=== PATIENT | female | born 2000 | race Caucasian/White ===

== ENCOUNTER 2021-04-17 12:42 | Outpatient (CLI) | payer BC, SELFPAY ==
--- NOTE | ~2021-04-17 | US_ITS ---
EXAMINATION: US soft tissue head and neck DATE: 04/17/2021 13:09 INDICATION: Right neck localized swelling. TECHNIQUE: Multiple grayscale and Doppler ultrasound images of the neck were obtained. COMPARISON: None FINDINGS: There is no abnormal mass or lymphadenopathy in the patient's area of concern in right neck . IMPRESSION: 1. No abnormal mass or lymphadenopathy in the patient's area of concern in right neck. Reviewed, dictated and finalized at location A. IMPRESSION: 1. No abnormal mass or lymphadenopathy in the patient's area of concern in righ t neck.
== END 2021-04-17 12:43 | disposition home or self-care (01) ==
PROVIDERS: PCP Physician Assistant; Visit Provider Physician Assistant
DX: R22.1 Localized swelling, mass and lump, neck (principal)
CPT/HCPCS: 76536

== ENCOUNTER 2022-06-13 13:00 | Emergency (ER) | payer OTHER, BC, SELFPAY ==
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
[2022-06-13 13:17] VITALS: BP 119/99; PULSE 92; RESP 20; TEMP 36.8; O2SAT 100
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
== END 2022-06-13 14:04 | disposition home or self-care (01) ==
PROVIDERS: Emergency Provider Nurse Practitioner Family; PCP Physician Assistant
DX: S22.21XA Fracture of manubrium, initial encounter for closed fracture (principal); V49.40XA Driver injured in collision with unspecified motor vehicles in traffic accident, initial encounter; J45.909 Unspecified asthma, uncomplicated; F41.9 Anxiety disorder, unspecified; F32.A Depression, unspecified
CPT/HCPCS: 71046; 71120; 99213; G0463

== ENCOUNTER 2022-07-01 13:16 | Outpatient (CLI) | payer OTHER, SELFPAY ==
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
== END 2022-07-01 13:17 | disposition home or self-care (01) ==
LOC: ANHIMG 13:25
PROVIDERS: PCP Physician Assistant; Visit Provider Physician Assistant
DX: S22.20XA Unspecified fracture of sternum, initial encounter for closed fracture (principal); T14.90XA Injury, unspecified, initial encounter
CPT/HCPCS: 71120

== ENCOUNTER 2025-03-01 10:42 | Outpatient (CLI) | payer OTHER, SELFPAY ==
--- NOTE | ~2025-03-01 | XR_ITS ---
XR lumbar spine 2-3V 03/01/2025 11:08 Indication: Sciatica the right side Procedure: 3 views lumbar spine Comparison: No prior studies for comparison. Findings: There is mild levocurvature of the lumbar spine. There is a punctate right renal stone. Marialuisa tebral body heights are maintained. No evidence for spondylolisthesis. There is facet hypertrophy at L4-5 and L5-S1. No significant disc narrowing. Impression: 1: Mild lumbar spondylosis with levoscoliosis. 2: Right nephrolithiasis. Reviewed, dictated and finalized at location A. Impression: 1: Mild lumbar spondylosis with levoscoliosis. 2: Right nephrolithiasis.
== END 2025-03-01 10:43 | disposition home or self-care (01) ==
PROVIDERS: PCP Physician Assistant; Visit Provider Physician Assistant
DX: M47.816 Spondylosis without myelopathy or radiculopathy, lumbar region (principal); M41.86 Other forms of scoliosis, lumbar region; N20.0 Calculus of kidney; M54.31 Sciatica, right side
CPT/HCPCS: 72100

== ENCOUNTER 2025-05-22 00:30 | Day surgery (SDC) | payer OTHER, SELFPAY ==
--- OUTSIDE RECORDS SUMMARY | 2006-03-05 03:15 | XMS_ITS | Continuity of Care Document ---
Author Organization [facility] Address [address] [place] [address] [address] [place] [address] Phone Care Team Providers Care Water Server Name Role Phone Darlene Hernández Unavailable Unavailable Advance Directives Directive Yes / No Effective Date File Name No Information Encounters Encounter Description Practice Location Reason(s) For Visit Diagnoses Date Provider Providers Copied on Encounter [facility], [address] [place] [address] [address], [place], [place], [id number], [place] tel:[phone] [facility] [place] No Information 7[address] Betty Colon. [address] [place] , [address], [place], [address], [place]. tel:[phone] Family History Family Member Type Diagnosis Age At Onset No Information Payers Payer name Insurance type Covered green party ID Authoriza tion(s) No Information Social History Type Description Quantity Date Captured Comments Sex Female Smoking Status No Information Chief Complaint And Reason For Visit No Information Reason For Referral Reason For Referral No Information History Of Present Illness Encounter Date Complaint History Of Prese nt Illness No Information Functional Status Date Functional Assessmen t No Information Instructions Date Instruction Additional Infor mation No Information Assessments Type Assessment Date No Information Patient Care Teams Name Effective Dates (start - stop) Status Members No Information
--- OUTSIDE RECORDS SUMMARY | 2024-01-23 16:30 | XMS_ITS ---
Author Organization [employer] [place] ([address]) Address [address] [place] [address] Care Team Providers Care Contact Centre Supervisor Name Role Phone Christie High Primary Care Provider Unavailab le Madai Copeland Unavailable [phone] Carlos Manuel Jeffers Unavailable Unavailable [employer], Provider Unavailable Unavailab le Allergies Allergen (clinical drug ingredient) Drug/Non Drug Allergy documented on EMR Reaction Allergy Type Onset Date Status OMNICEF (uncoded) Hives Allergy Ac tive REASON FOR VISIT [facility] To [facility] Conversion Encounter Medications Medication SIG (Take, Route, Frequency, Duration) Notes Start Date End Date Status ZyrTEC Allergy 10 MG 1 tab(s) orally once a day Active Breo Ellipta 100 MCG-25 MCG/INH 1 PUFF(S) INHALED ONCE A DAY *Please review and pick correct strength-formulat ion from [employer] options. If intended option is not shown, discontinue and re-order from Quick Search* Active Breo Ellipta 100 MCG-25 MCG/INH 1 PUFF(S) INHALED ONCE A DAY; Duration: 30 DAY(S) *Please review and pick correct strength-formulat ion from [employer] options. If intended option is not shown, discontinue and re-order from Quick Search* Active PROAIR HFA CFC FREE 90 MCG/INH 2 PUFF(S) INHALED Q4-6 HOURS, PRN AND PER THE ASTHMA ACTION PLAN; Duration: 30 DAY(S) *Please review for potential replacement for e-prescription and drug interaction check* Active AEROCHAMBER PLUS N/A USE WITH INHALER BY MOUTH WITH ALBUTEROL PER ASTHMA ACTION PLAN *Please review for potential replacement for e-prescription and drug interaction check* Active NASAL WASHES N/A DIRECTED INTRANASALLY NEEDED; Duration: 30 *Please review for potential replacement for e-prescription and drug interaction check* Not-Taking Encounters Encounter Location Date Provider Diagnosis [address] [address] 01/23/2024 Provider Cheng Moderate persistent asthma, uncomplicated J45.40 and Allergic rhinitis due to pollen J30.1 Assessments Encounter Date Diagnosis (ICD Code) Assessment Notes Treatment Notes Treatment Clinical Notes Section Notes 01/23/2024 Moderate persistent asthma, uncomplicated (ICD-10 - J45.40) 01/23/2024 Allergic rhinitis due to pollen (ICD-10 - J30.1) Plan Of Treatment Medication Medication Name Sig Start Date Stop Date Notes ZyrTEC Allergy 10 MG 1 tab(s) orally onc e a day Breo Ellipta 100 MCG-25 MCG/INH 1 PUFF(S) INHALED ONCE A DAY; Duration: 30 DAY(S) *Please review and pick correct strength-formulation from [employer] options. If intended option is not shown, discontinue and re-order from Quick Search* PROAIR HFA CFC FREE 90 MCG/INH 2 PUFF(S) INHALED Q4-6 HOURS, PRN AND PER THE ASTHMA ACTION PLAN; Duration: 30 DAY(S) *Please review for potential replacement for e-prescription and drug interaction check* AEROCHAMBER PLUS N/A USE WITH INHALER BY MOUTH WITH ALBUTEROL PER ASTHMA ACTION PLAN *Please review for potential replacement for e-prescription and drug interaction check* Progress Notes * NOAH JeanethDOB:2000 ([age] yo F)Acc No.[id number]:01/23/2024 Patient: Jeaneth COOK Provider: Dulce Maria Carter :2000 A ge:23 Y S ex:Female Date:01/23/2024 Address:[address] [place] [address] Pcp:Christie High Subjective: * Chief Complaints: * 1 . [facility] Conversion Encounter. * Medical History: * Medications: T aking Breo Ellipta 100 MCG-25 MCG/INH POWDER 1 PUFF(S) INHALED ONCE A DAY , Notes to Pharmacist: *Please review and pick correct [facility]ulation [facility]. If intended option is not shown, discontinue and re-order from Quick Search*, Not-Taking/PRN NASAL WASHES N/A 1 QUART OF TAP WATER, 1 TSP NACL, 1 PINCH OF BAKING SODA DIRECTED INTRANASALLY NEEDED , Notes to Pharmacist: *Please review for potential replacement for e-prescription and drug interaction check* * Allergies: O MNICEF: Hives - Allergy. Objective: * Vitals: Assessment: * Assessment: 1. M oderate persistent asthma, uncomplicated - J45.40 2 . A llergic rhinitis due to pollen - J30.1 Plan: * Treatment: 2. A llergic rhinitis due to pollen Continue ZyrTEC Allergy Tablet, 10 MG, 1 tab(s), orally, once a day. * Billing Information: * Visit Code: * Procedure Codes: * Electronic signature of Kiana RUDOLPH-Migration on 05/22/2025 at 12:32 AM CDT Sign off status: Pending * Provider: Dulce Maria sumner Migration Date: 0 01/23/2024 Generated for Luis Fernando morse/Akanksha/Sherry on: 1 12:32 AM CDT
[2025-05-17 13:09] VITALS: BMI 35.4
--- NOTE | 2025-05-17 13:20 | SUR.PREOP ---
[facility] has started construction of its new state of the art ER which will open Spring 2026. With this, we anticipate parking may be a challenge for some our surgical patients and families. Parking spaces are limited but are available for all Surgical, obstetrics, and ER patients sharing this lot. If you arrive and find you are having a hard time finding a parking space, please note that we understand the challenges, please drive around the hospital and park near Hospital Entrance 1. When you enter this entrance, you can ask a volunteer to direct or take you back to the surgical waiting area to check in. We appreciate everyone?s understanding of these expected challenges while we build for your future. Report to the Outpatient Waiting Room, entrance under the green pavilion located off [address], at time __815am on date _05/22/25___. Planned Procedure Time: __1015__.? Time changes happen often and if your time is changed the preop area will call you the afternoon before. - You and your visitor will be asked to self-screen and do not enter if you have any COVID symptoms. Please call surgeon if you need to reschedule. - A mask is optional within the hospital at this time. Patients may have clear liquids (water, carbonated beverages, clear teas, apple juice) until 3 hours prior to surgery with a maximum of 20 ounces. - No food from midnight until time of surgery and no smoking, or chewing tobacco (or any form of nicotine). No chewing gum, candy or mints. Take only the following medications with a SIP of water on the morning of surgery: __escitalopram and (hydroxyzine if needed)___ DO NOT STOP ANY OF YOUR OTHER PRESCRIPTION MEDICATIONS PRIOR TO SURGERY EXCEPT THE FOLLOWING Hold all vitamins and supplements for 3 days per anesthesiologist. Medications to discontinue per physician __n/a____ Date to take last dose___n/a__ Please no make-up, nail belizean, hairspray, perfume, deodorant, or body powder the day of surgery.? No jewelry (including any body piercings) or valuables the day of surgery, leave them at home.? Please take a shower or bath the night before, or the morning of, surgery with an antibacterial soap.? Wear comfortable, loose fitting clothing.? Children are encouraged to wear pajamas. - Jewelry must be removed prior to entering the operating room.? Rings and piercings that are not removed may be cut off. - The hospital will not accept responsibility for valuables.? - Please leave all valuables, including medications, at home the day of surgery. If you are going home after surgery, a licensed courier driver must drive you home.? - NO public transportation without another adult if you receive anesthesia. - We recommend that an adult stay with you for 24 hours following discharge. - We also recommend that you do not drive, make important decision, drink alcoholic beverages, or take any drugs that were not prescribed by your health care provider for at least 24 hours after your discharge time. Follow any additional instructions given to you from your surgeon. Telephone instructions given to _Jeaneth____and asked if any additional questions and then verbalized understanding. Patient advised to call surgeon office or pre surgery nurse liaison [phone] if any additional questions.
[2025-05-22] VITALS (8 sets, daily range): BP systolic 85–132; BP diastolic 55–90; PULSE 67–92; RESP 16–20; TEMP 36.2–36.7; O2SAT 98–100; BMI 36.2
--- OUTSIDE RECORDS SUMMARY | 2025-05-22 00:33 | XMS_ITS | Data Portability ---
Author Organization [place] [facility] [employer], Main Office Address [address] [place] [address] Assessment No assessment recorded. Plan of Treatment Reminders Order Date Submit Date Provider Last Modified By Organization Details Last Modified Time Details Appointments None recorded. Lab TSH, serum or plasma 2022 023 [employer] [facility], [address], [place], [address], 3 16:48:17 T4, free, serum 2022 023 [employer] [facility], [address], [place], [address], 3 16:48:18 lipid panel, serum 2022 023 [employer] [facility], [address], [place], [address], 3 16:48:15 CBC w/ auto diff 2022 023 [employer] [facility], [address], [place], [address], 3 16:48:19 CMP, serum or plasma 2022 023 [employer] [facility], [address], [place], [address], 3 16:48:16 urinalysis complete, reflex culture 2022 023 [employer] [facility], [address], [place], [address], 3 16:48:20 vitamin B12 + folate, serum or blood 2022 023 [employer] [facility], [address], [place], [address], 3 16:48:21 HbA1c (hemoglobin A1c), blood 2022 023 [employer] [facility], [address], [place], [address], 3 16:48:17 Referral psychiatris t referral - Please call pt to schedule appt. Thank you 2022 023 [employer] [employer], [address], [address], 3 05:02:16 Procedures None recorded. Surgeries None recorded. Imaging None recorded. Medication Orders None recorded. Patient TargetsNo targets recorded. Patient InstructionsNo instructions recorded. Reason for Referral Psychiatrist Referral for Mo od disorder Please call pt to schedule appt. Thank you Referring Physician: Christie High, Internal Medicine, Encounter Date: 11/04/2022 Results Created Date Observation Date Name Description Value Unit Range Abnormal Flag Note LastModifiedBy Organization Detail LastModifiedTime 04/19/20 22 04/25/2022 REFLE XIVE URINE CULTU RE reflexive urine culture NO CULTU RE INDIC ATED Not Available [facility] [address] [place], [address], 04/25/2022 06:34:50 04/19/20 22 04/25/2022 URINA LYSIS , COMPL ETE W/REF PATRICIA TO CULTU RE color yellow yellow normal Not Available [facility] [address] [place], [address], 04/25/2022 06:34:49 04/19/20 22 04/25/2022 URINA LYSIS , COMPL ETE W/REF PATRICIA TO CULTU RE appearance clear clear normal Not Available [address], [address], 04/25/2022 06:34:49 04/19/20 22 04/25/2022 URINA LYSIS , COMPL ETE W/REF PATRICIA TO CULTU RE specific gravity 1.017 1.001- 1.035 normal Not Available [address], [address], 04/25/2022 06:34:49 04/19/2004/25/2022 URINA LYSIS , COMPL ETE W/REF PATRICIA TO CULTU RE pH 8.0 5.0-8. 0 normal Not Available [address], [address], 04/25/2022 06:34:49 04/19/2004/25/2022 URINA LYSIS , COMPL ETE W/REF PATRICIA TO CULTU RE glucose negati ve negati ve normal Not Available [address], [address], 04/25/2022 06:34:49 04/19/20 22 04/25/2022 URINA LYSIS , COMPL ETE W/REF PATRICIA TO CULTU RE bilirubin negati ve negati ve normal Not Available [address], [address], 04/25/2022 06:34:49 04/19/2004/25/2022 URINA LYSIS , COMPL ETE W/REF PATRICIA TO CULTU RE ketones negati ve negati ve normal Not Available [address], [address], 04/25/2022 06:34:49 04/19/20 22 04/25/2022 URINA LYSIS , COMPL ETE W/REF PATRICIA TO CULTU RE occult blood negati ve negati ve normal Not Available [address], [address], 04/25/2022 06:34:49 04/19/20 22 04/25/2022 URINA LYSIS , COMPL ETE W/REF PATRICIA TO CULTU RE protein negati ve negati ve normal Not Available [address], [address], 04/25/2022 06:34:49 04/19/20 22 04/25/2022 URINA LYSIS , COMPL ETE W/REF PATRICIA TO CULTU RE nitrite negati ve negati ve normal Not Available [address], [address], 04/25/2022 06:34:49 04/19/20 22 04/25/2022 URINA LYSIS , COMPL ETE W/REF PATRICIA TO CULTU RE leukocyte esterase negati ve negati ve normal Not Available [address], [address], 04/25/2022 06:34:49 04/19/20 22 04/25/2022 URINA LYSIS , COMPL ETE W/REF PATRICIA TO CULTU RE WBC none seen /hpf < or = 5 normal Not Available [address], [address], 04/25/2022 06:34:49 04/19/20 22 04/25/2022 URINA LYSIS , COMPL ETE W/REF PATRICIA TO CULTU RE RBC 0-2 /hpf < or = 2 normal Not Available [address], [address], 04/25/2022 06:34:49 04/19/20 22 04/25/2022 URINA LYSIS , COMPL ETE W/REF PATRICIA TO CULTU RE squamous epithelial cells none seen /hpf < or = 5 normal Not Available [address] [place], [address], 04/25/2022 06:34:49 04/19/20 22 04/25/2022 URINA LYSIS , COMPL ETE W/REF PATRICIA TO CULTU RE bacteria none seen /hpf none seen normal Not Available [address], [address], 04/25/2022 06:34:49 04/19/20 22 04/25/2022 URINA LYSIS , COMPL ETE W/REF PATRICIA TO CULTU RE hyaline cast none seen /lpf none seen normal Not Available [address], [address], 04/25/2022 06:34:49 04/19/20 22 04/25/2022 CBC (INCL UDES DIFF/ PLT) white blood cell count 8.1 thous and/u L 3.8-10 .8 normal Not Available [address], [address], 04/25/2022 06:34:49 04/19/20 22 04/25/2022 CBC (INCL UDES DIFF/ PLT) red blood cell count 4.60 chrissie on/uL 3.80-5 .10 normal Not Available [address], [address], 04/25/2022 06:34:49 04/19/2004/25/2022 CBC (INCL UDES DIFF/ PLT) hemoglobin 12.8 g/dL 11.7-1 5.5 normal Not Available [address], [address], 04/25/2022 06:34:49 04/19/20 22 04/25/2022 CBC (INCL UDES DIFF/ PLT) hematocrit 39.3 % 35.0-4 5.0 normal Not Available [address], [address], 04/25/2022 06:34:49 04/19/20 22 04/25/2022 CBC (INCL UDES DIFF/ PLT) MCV 85.4 fL 80.0-1 00.0 normal Not Available [address], [address], 04/25/2022 06:34:49 04/19/20 22 04/25/2022 CBC (INCL UDES DIFF/ PLT) MCH 27.8 pg 27.0-3 3.0 normal Not Available [address], [address], 04/25/2022 06:34:49 04/19/2004/25/2022 CBC (INCL UDES DIFF/ PLT) MCHC 32.6 g/dL 32.0-3 6.0 normal Not Available [address], [address], 04/25/2022 06:34:49 04/19/20 22 04/25/2022 CBC (INCL UDES DIFF/ PLT) RDW 13.7 % 11.0-1 5.0 normal Not Available [address], [address], 04/25/2022 06:34:49 04/19/20 22 04/25/2022 CBC (INCL UDES DIFF/ PLT) platelet count 314 thous and/u L 140-40 0 normal Not Available [address], [address], 04/25/2022 06:34:49 04/19/20 22 04/25/2022 CBC (INCL UDES DIFF/ PLT) MPV 10.2 fL 7.5-12 .5 normal Not Available [address], [address], 04/25/2022 06:34:49 04/19/20 22 04/25/2022 CBC (INCL UDES DIFF/ PLT) absolute neutrophils 4917 cells /uL 1500-7 800 normal Not Available [address], [address], 04/25/2022 06:34:49 04/19/20 22 04/25/2022 CBC (INCL UDES DIFF/ PLT) absolute lymphocytes 2292 cells /uL 850-39 00 normal Not Available [address], [address], 04/25/2022 06:34:49 04/19/20 22 04/25/2022 CBC (INCL UDES DIFF/ PLT) absolute monocytes 616 cells /uL 200-95 0 normal Not Available [address], [address], 04/25/2022 06:34:49 04/19/20 22 04/25/2022 CBC (INCL UDES DIFF/ PLT) absolute eosinophils 235 cells /uL 15-500 normal Not Available [address], [address], 04/25/2022 06:34:49 04/19/20 22 04/25/2022 CBC (INCL UDES DIFF/ PLT) absolute basophils 41 cells /uL 0-200 normal Not Available [address], [address], 04/25/2022 06:34:49 04/19/2004/25/2022 CBC (INCL UDES DIFF/ PLT) neutrophils 60.7 % normal Not Available [address], [address], 04/25/2022 06:34:49 04/19/2004/25/2022 CBC (INCL UDES DIFF/ PLT) lymphocytes 28.3 % normal Not Available [address], [address], 04/25/2022 06:34:49 04/19/20 22 04/25/2022 CBC (INCL UDES DIFF/ PLT) monocytes 7.6 % normal Not Available [facility] [place] [address] [place], [address], 04/25/2022 06:34:49 04/19/20 22 04/25/2022 CBC (INCL UDES DIFF/ PLT) eosinophils 2.9 % normal Not Available [facility] [address] [address] [place], [address], 04/25/2022 06:34:49 04/19/20 22 04/25/2022 CBC (INCL UDES DIFF/ PLT) basophils 0.5 % normal Not Available [facility] [address] [place] [address] [place], [address], 04/25/2022 06:34:49 04/19/2004/25/2022 HEMOG LOBIN A1C hemoglobin A1C 5.3 %_of_ total _HGB <5.7 normal For the purpo se of luis barreto for the prese nce of diabe kanchan: <5.7% Consi stent with the absen ce of diabe kanchan 5.7-6 .4% Consi stent with incre ased risk for diabe kanchan (pred iabet es) > or =6.5% Consi stent with diabe kanchan This assay resul t is consi stent with a decre ased risk of diabe kanchan. Curre ntly, no conse nsus exist s karyn rose use of hemog lobin A1c for diagn osis of diabe kanchan in child samantha. Accor ding to Ameri can Diabe kanchan Assoc iatio n (ADA) guide lines , hemog lobin A1c <7.0% repre sents optim al contr ol in non-p regna nt diabe tic patie nts. Diffe rent chago cs may apply to speci fic patie nt popul ation s. Stand ards of Medic al Care in Diabe kanchan(A DA). Not Available [facility] [place] [address] [place], [address], 04/25/2022 06:34:48 04/19/2004/25/2022 COMPR EHENS FLAKITA METAB OLIC PANEL glucose 92 mg/dL 65-99 normal Fasti ng refer ence inter candace Not Available [address], [address], 04/25/2022 06:34:47 04/19/20 22 04/25/2022 COMPR EHENS FLAKITA METAB OLIC PANEL urea nitrogen (BUN) 13 mg/dL 7-25 normal Not Available [address], [address], 04/25/2022 06:34:47 04/19/20 22 04/25/2022 COMPR EHENS FLAKITA METAB OLIC PANEL creatinine 0.64 mg/dL 0.50-0 .96 normal Not Available [address], [address], 04/25/2022 06:34:47 04/19/20 22 04/25/2022 COMPR EHENS FLAKITA METAB OLIC PANEL eGFR 127 mL/mi n/1.7 3m2 > or = 60 normal The eGFR is based on the CKD-E PI 2020 equat ion. To calcu late the new eGFR from a previ ous Creat inine or Cysta tin C resul t, go to https ://siva [place].o leigha/ludy moss s/ kdoqi /gfr% 5Fcal culat or Not Available [address], [address], 04/25/2022 06:34:47 04/19/20 22 04/25/2022 COMPR EHENS FLAKITA METAB OLIC PANEL BUN/creatini ne ratio not applic able (calc ) 6-22 Not Available [address], [address], 04/25/2022 06:34:47 04/19/20 22 04/25/2022 COMPR EHENS FLAKITA METAB OLIC PANEL sodium 137 mmol/ L 135-14 6 normal Not Available [address], [address], 04/25/2022 06:34:47 04/19/20 22 04/25/2022 COMPR EHENS FLAKITA METAB OLIC PANEL potassium 4.4 mmol/ L 3.5-5. 3 normal Not Available [address], [address], 04/25/2022 06:34:47 04/19/20 22 04/25/2022 COMPR EHENS FLAKITA METAB OLIC PANEL chloride 104 mmol/ L 98-110 normal Not Available [address], [address], 04/25/2022 06:34:47 04/19/20 22 04/25/2022 COMPR EHENS FLAKITA METAB OLIC PANEL carbon dioxide 26 mmol/ L 20-32 normal Not Available [address], [address], 04/25/2022 06:34:47 04/19/20 22 04/25/2022 COMPR EHENS FLAKITA METAB OLIC PANEL calcium 9.2 mg/dL 8.6-10 .2 normal Not Available [address], [address], 04/25/2022 06:34:47 04/19/20 22 04/25/2022 COMPR EHENS FLAKITA METAB OLIC PANEL protein, total 6.9 g/dL 6.1-8. 1 normal Not Available [address], [address], 04/25/2022 06:34:47 04/19/20 22 04/25/2022 COMPR EHENS FLAKITA METAB OLIC PANEL albumin 4.2 g/dL 3.6-5. 1 normal Not Available [address], [address], 04/25/2022 06:34:47 04/19/20 22 04/25/2022 COMPR EHENS FLAKITA METAB OLIC PANEL globulin 2.7 g/dL_ (calc ) 1.9-3. 7 normal Not Available [address], [address], 04/25/2022 06:34:47 04/19/20 22 04/25/2022 COMPR EHENS FLAKITA METAB OLIC PANEL albumin/glob ulin ratio 1.6 (calc ) 1.0-2. 5 normal Not Available [address], [address], 04/25/2022 06:34:47 04/19/20 22 04/25/2022 COMPR EHENS FLAKITA METAB OLIC PANEL bilirubin, total 0.5 mg/dL 0.2-1. 2 normal Not Available [address], [address], 04/25/2022 06:34:47 04/19/20 22 04/25/2022 COMPR EHENS FLAKITA METAB OLIC PANEL alkaline phosphatase 50 U/L 31-125 normal Not Available [address], [address], 04/25/2022 06:34:47 04/19/20 22 04/25/2022 COMPR EHENS FLAKITA METAB OLIC PANEL AST 17 U/L 10-30 normal Not Available [address], [address], 04/25/2022 06:34:47 04/19/20 22 04/25/2022 COMPR EHENS FLAKITA METAB OLIC PANEL ALT 19 U/L 6-29 normal Not Available [address], [address], 04/25/2022 06:34:47 04/19/20 22 04/25/2022 LIPID PANEL WITH RATIO S cholesterol, total 94 mg/dL <200 normal Not Available [address], [address], 04/25/2022 06:34:47 04/19/20 22 04/25/2022 LIPID PANEL WITH RATIO S HDL cholesterol 47 mg/dL > or = 50 low Not Available [address], [address], 04/25/2022 06:34:47 04/19/20 22 04/25/2022 LIPID PANEL WITH RATIO S triglyceride s 73 mg/dL <150 normal Not Available [facility] [address], [address], 04/25/2022 06:34:47 04/19/20 22 04/25/2022 LIPID PANEL WITH RATIO S LDL-choleste rol 32 mg/dL _(ricardo c) normal Refer ence range : <100 Brii able range <100 mg/dL for prima ry preve ntion ; <70 mg/dL for patie nts with CHD or diabe tic patie nts with > or = 2 CHD risk facto rs. LDL-C is now calcu lated using the Nasreen n-Hop kins calcu eagle n, which is a valid ated novel stacey huang accur acy than the Fried payton equat ion in the estim ation of LDL-C . Nasreen mclean SS et al. JOE. 2013; 310(1 9): 2061- 2068 (http ://ed ucati on.Lori Francois Picitup. com/f aq/FA Q164) Not Available [address], [address], 04/25/2022 06:34:47 04/19/20 22 04/25/2022 LIPID PANEL WITH RATIO S chol/HDLC ratio 2.0 (calc ) <5.0 normal Not Available [address], [address], 04/25/2022 06:34:47 04/19/20 22 04/25/2022 LIPID PANEL WITH RATIO S LDL/HDL ratio 0.7 (calc ) Below avera ge Risk: <2.34 [place] ge Risk: 2.35- 4.12 Moder ate Risk: 4.13- 5.56 High Risk: >5.57 Not Available [address], [address], 04/25/2022 06:34:47 04/19/20 22 04/25/2022 LIPID PANEL WITH RATIO S non HDL cholesterol 47 mg/dL _(ricardo c) <130 normal For patie nts with diabe kanchan plus 1 major ASCVD risk facto r, treat ing to a non-H DL-C goal of <100 mg/dL (LDL- C of <70 mg/dL ) is william palo n. Not Available [address], [address], 04/25/2022 06:34:47 04/19/2004/25/2022 TSH+F REE T4 TSH 1.00 mIU/L normal Refer ence Range > or = 20 Years 0.40- 4.50 Pregn joão Range s First trime ster 0.26- 2.66 Secon d trime ster 0.55- 2.73 Third trime ster 0.43- 2.91 Not Available [address], [address], 04/25/2022 06:34:46 04/19/2004/25/2022 TSH+F REE T4 T4, free 1.2 NG/dL 0.8-1. 8 normal Not Available [address], [address], 04/25/2022 06:34:46 04/23/20 23 04/24/2023 LIPID PANEL WITH RATIO S cholesterol, total 118 mg/dL <200 normal Not Available [address], [address], 04/24/2023 16:48:15 04/23/20 23 04/24/2023 LIPID PANEL WITH RATIO S HDL cholesterol 46 mg/dL > or = 50 low Not Available [facility] [address] [place], [address], 04/24/2023 16:48:15 04/23/20 23 04/24/2023 LIPID PANEL WITH RATIO S triglyceride s 123 mg/dL <150 normal Not Available [address] [address] [place], [address], 04/24/2023 16:48:15 04/23/20 23 04/24/2023 LIPID PANEL WITH RATIO S LDL-choleste rol 52 mg/dL _(ricardo c) normal Refer ence range : <100 Brii able range <100 mg/dL for prima ry preve ntion ; <70 mg/dL for patie nts with CHD or diabe tic patie nts with > or = 2 CHD risk facto rs. LDL-C is now calcu lated using the Nasreen mclean-Hop kins christine guillermo n, which is a valid ated novel stacey butler r accur acy than the Fried payton equat ion in the estim ation of LDL-C . Nasreen mclean SS et al. JEO. 2013; 310(1 9): 2061- 2068 (http ://ed ucati on.Qu Alessandro Picitup. com/f aq/FA Q164) Not Available [facility] [address] [place], [address], 04/24/2023 16:48:15 04/23/20 23 04/24/2023 LIPID PANEL WITH RATIO S chol/HDLC ratio 2.6 (calc ) <5.0 normal Not Available [address] [address] [place], [address], 04/24/2023 16:48:15 04/23/20 23 04/24/2023 LIPID PANEL WITH RATIO S LDL/HDL ratio 1.1 (calc ) Below avera ge Risk: <2.34 [place] ge Risk: 2.35- 4.12 Moder ate Risk: 4.13- 5.56 High Risk: >5.57 Not Available [address] [address] [place], [address], 04/24/2023 16:48:15 04/23/2004/24/2023 LIPID PANEL WITH RATIO S non HDL cholesterol 72 mg/dL _(ricardo c) <130 normal For patie nts with diabe kanchan plus 1 major ASCVD risk facto r, treat ing to a non-H DL-C goal of <100 mg/dL (LDL- C of <70 mg/dL ) is consi dered a thera peuti c optio n. Not Available [address] [place], [address], 04/24/2023 16:48:15 04/23/2004/24/2023 COMPR EHENS FLAKITA METAB OLIC PANEL glucose 97 mg/dL 65-99 normal Fasti ng refer ence inter candace Not Available [address] [address] [place], [address], 04/24/2023 16:48:16 04/23/2004/24/2023 COMPR EHENS FLAKITA METAB OLIC PANEL urea nitrogen (BUN) 12 mg/dL 7-25 normal Not Available [address] [place], [address], 04/24/2023 16:48:16 04/23/2004/24/2023 COMPR EHENS FLAKITA METAB OLIC PANEL creatinine 0.73 mg/dL 0.50-0 .96 normal Not Available [address] [address] [place], [address], 04/24/2023 16:48:16 04/23/2004/24/2023 COMPR EHENS FLAKITA METAB OLIC PANEL eGFR 118 mL/mi n/1.7 3m2 > or = 60 normal Not Available [address] [address] [place], [address], 04/24/2023 16:48:16 04/23/20 23 04/24/2023 COMPR EHENS FLAKITA METAB OLIC PANEL BUN/creatini ne ratio SEE NOTE: (calc ) 6-22 Not Repor jasmin: BUN and Creat inine are withi n refer ence range . Not Available [address], [address], 04/24/2023 16:48:16 04/23/20 23 04/24/2023 COMPR EHENS FLAKITA METAB OLIC PANEL sodium 136 mmol/ L 135-14 6 normal Not Available [address], [address], 04/24/2023 16:48:16 04/23/20 23 04/24/2023 COMPR EHENS FLAKITA METAB OLIC PANEL potassium 4.3 mmol/ L 3.5-5. 3 normal Not Available [address], [address], 04/24/2023 16:48:16 04/23/20 23 04/24/2023 COMPR EHENS FLAKITA METAB OLIC PANEL chloride 100 mmol/ L 98-110 normal Not Available [address], [address], 04/24/2023 16:48:16 04/23/20 23 04/24/2023 COMPR EHENS FLAKITA METAB OLIC PANEL carbon dioxide 29 mmol/ L 20-32 normal Not Available [address], [address], 04/24/2023 16:48:16 04/23/20 23 04/24/2023 COMPR EHENS FLAKITA METAB OLIC PANEL calcium 9.5 mg/dL 8.6-10 .2 normal Not Available [address], [address], 04/24/2023 16:48:16 04/23/20 23 04/24/2023 COMPR EHENS FLAKITA METAB OLIC PANEL protein, total 7.1 g/dL 6.1-8. 1 normal Not Available [address] [address] [place], [address], 04/24/2023 16:48:16 04/23/20 23 04/24/2023 COMPR EHENS FLAKITA METAB OLIC PANEL albumin 4.4 g/dL 3.6-5. 1 normal Not Available [address], [address], 04/24/2023 16:48:16 04/23/20 23 04/24/2023 COMPR EHENS FLAKITA METAB OLIC PANEL globulin 2.7 g/dL_ (calc ) 1.9-3. 7 normal Not Available [address], [address], 04/24/2023 16:48:16 04/23/20 23 04/24/2023 COMPR EHENS FLAKITA METAB OLIC PANEL albumin/glob ulin ratio 1.6 (calc ) 1.0-2. 5 normal Not Available [address] [address] [place], [address], 04/24/2023 16:48:16 04/23/2004/24/2023 COMPR EHENS FLAKITA METAB OLIC PANEL bilirubin, total 0.4 mg/dL 0.2-1. 2 normal Not Available [address], [address], 04/24/2023 16:48:16 04/23/20 23 04/24/2023 COMPR EHENS FLAKITA METAB OLIC PANEL alkaline phosphatase 64 U/L 31-125 normal Not Available [address] [address] [place], [address], 04/24/2023 16:48:16 04/23/20 23 04/24/2023 COMPR EHENS FLAKITA METAB OLIC PANEL AST 18 U/L 10-30 normal Not Available [address] [address] [place], [address], 04/24/2023 16:48:16 04/23/20 23 04/24/2023 COMPR EHENS FLAKITA METAB OLIC PANEL ALT 18 U/L 6-29 normal Not Available [facility] [address] [place] [address] [place], [address], 04/24/2023 16:48:16 04/23/20 23 04/24/2023 HEMOG LOBIN A1C hemoglobin A1C 5.6 %_of_ total _HGB <5.7 normal For the purpo se of scree estevan for the prese nce of diabe kanchan: <5.7% Consi stent with the absen ce of diabe kanchan 5.7-6 .4% Consi stent with incre ased risk for diabe kanchan (pred iabet es) > or =6.5% Consi stent with diabe kanchan This assay resul t is consi stent with a decre ased risk of diabe kanchan. Curre ntly, no conse nsus exist s karyn rose use of hemog lobin A1c for diagn osis of diabe kanchan in child samantha. Accor ding to Ameri can Diabe kanchan Assoc iatio n (ADA) guide lines , hemog lobin A1c <7.0% repre sents optim al contr ol in non-p regna nt diabe tic patie nts. Diffe rent metri cs may apply to speci fic patie nt popul ation s. Stand ards of Medic al Care in Diabe kanchan(A DA). Not Available [facility] [address] [place], [address], 04/24/2023 16:48:17 04/23/2004/24/2023 TSH TSH 2.56 mIU/L normal Refer ence Range > or = 20 Years 0.40- 4.50 Pregn joão Range s First trime ster 0.26- 2.66 Secon d trime ster 0.55- 2.73 Third trime ster 0.43- 2.91 Not Available [facility] [address] [place], [address], 04/24/2023 16:48:17 04/23/2004/24/2023 T4, FREE T4, free 1.0 NG/dL 0.8-1. 8 normal Not Available [address], [address], 04/24/2023 16:48:18 04/23/2004/24/2023 CBC (INCL UDES DIFF/ PLT) white blood cell count 10.1 thous and/u L 3.8-10 .8 normal Not Available [address], [address], 04/24/2023 16:48:19 04/23/2004/24/2023 CBC (INCL UDES DIFF/ PLT) red blood cell count 4.67 chrissie on/uL 3.80-5 .10 normal Not Available [address], [address], 04/24/2023 16:48:19 04/23/2004/24/2023 CBC (INCL UDES DIFF/ PLT) hemoglobin 12.1 g/dL 11.7-1 5.5 normal Not Available [address], [address], 04/24/2023 16:48:19 04/23/2004/24/2023 CBC (INCL UDES DIFF/ PLT) hematocrit 38.3 % 35.0-4 5.0 normal Not Available [address], [address], 04/24/2023 16:48:19 04/23/2004/24/2023 CBC (INCL UDES DIFF/ PLT) MCV 82.0 fL 80.0-1 00.0 normal Not Available [address], [address], 04/24/2023 16:48:19 04/23/2004/24/2023 CBC (INCL UDES DIFF/ PLT) MCH 25.9 pg 27.0-3 3.0 low Not Available [address], [address], 04/24/2023 16:48:19 04/23/2004/24/2023 CBC (INCL UDES DIFF/ PLT) MCHC 31.6 g/dL 32.0-3 6.0 low Not Available [address], [address], 04/24/2023 16:48:19 04/23/2004/24/2023 CBC (INCL UDES DIFF/ PLT) RDW 14.1 % 11.0-1 5.0 normal Not Available [address], [address], 04/24/2023 16:48:19 04/23/20 23 04/24/2023 CBC (INCL UDES DIFF/ PLT) platelet count 290 thous and/u L 140-40 0 normal Not Available [address], [address], 04/24/2023 16:48:19 04/23/2004/24/2023 CBC (INCL UDES DIFF/ PLT) MPV 10.3 fL 7.5-12 .5 normal Not Available [address], [address], 04/24/2023 16:48:19 04/23/2004/24/2023 CBC (INCL UDES DIFF/ PLT) absolute neutrophils 5909 cells /uL 1500-7 800 normal Not Available [address], [address], 04/24/2023 16:48:19 04/23/2004/24/2023 CBC (INCL UDES DIFF/ PLT) absolute lymphocytes 2980 cells /uL 850-39 00 normal Not Available [address], [address], 04/24/2023 16:48:19 04/23/20 23 04/24/2023 CBC (INCL UDES DIFF/ PLT) absolute monocytes 909 cells /uL 200-95 0 normal Not Available [address], [address], 04/24/2023 16:48:19 04/23/20 23 04/24/2023 CBC (INCL UDES DIFF/ PLT) absolute eosinophils 293 cells /uL 15-500 normal Not Available [address] [place], [address], 04/24/2023 16:48:19 04/23/20 23 04/24/2023 CBC (INCL UDES DIFF/ PLT) absolute basophils 10 cells /uL 0-200 normal Not Available [address], [address], 04/24/2023 16:48:19 04/23/20 23 04/24/2023 CBC (INCL UDES DIFF/ PLT) neutrophils 58.5 % normal Not Available [facility] [address], [address], 04/24/2023 16:48:19 04/23/20 23 04/24/2023 CBC (INCL UDES DIFF/ PLT) lymphocytes 29.5 % normal Not Available [address], [address], 04/24/2023 16:48:19 04/23/2004/24/2023 CBC (INCL UDES DIFF/ PLT) monocytes 9.0 % normal Not Available [facility] [address], [address], 04/24/2023 16:48:19 04/23/20 23 04/24/2023 CBC (INCL UDES DIFF/ PLT) eosinophils 2.9 % normal Not Available [facility] [address] [place], [address], 04/24/2023 16:48:19 04/23/20 23 04/24/2023 CBC (INCL UDES DIFF/ PLT) basophils 0.1 % normal Not Available [address], [address], 04/24/2023 16:48:19 04/23/20 23 04/24/2023 URINA LYSIS , COMPL ETE W/REF PATRICIA TO CULTU RE color YELLOW yellow normal Not Available [address], [address], 04/24/2023 16:48:20 04/23/20 23 04/24/2023 URINA LYSIS , COMPL ETE W/REF PATRICIA TO CULTU RE appearance CLEAR clear normal Not Available [address], [address], 04/24/2023 16:48:20 04/23/20 23 04/24/2023 URINA LYSIS , COMPL ETE W/REF PATRICIA TO CULTU RE specific gravity 1.017 1.001- 1.035 normal Not Available [address], [address], 04/24/2023 16:48:20 04/23/20 23 04/24/2023 URINA LYSIS , COMPL ETE W/REF PATRICIA TO CULTU RE pH 5.5 5.0-8. 0 normal Not Available [address], [address], 04/24/2023 16:48:20 04/23/20 23 04/24/2023 URINA LYSIS , COMPL ETE W/REF PATRICIA TO CULTU RE glucose NEGATI VE negati ve normal Not Available [address], [address], 04/24/2023 16:48:20 04/23/20 23 04/24/2023 URINA LYSIS , COMPL ETE W/REF PATRICIA TO CULTU RE bilirubin NEGATI VE negati ve normal Not Available [address] [address] [place], [address], 04/24/2023 16:48:20 04/23/20 23 04/24/2023 URINA LYSIS , COMPL ETE W/REF PATRICIA TO CULTU RE ketones NEGATI VE negati ve normal Not Available [facility] [address] [place], [address], 04/24/2023 16:48:20 04/23/20 23 04/24/2023 URINA LYSIS , COMPL ETE W/REF PATRICIA TO CULTU RE occult blood NEGATI VE negati ve normal Not Available [address], [address], 04/24/2023 16:48:20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
--- OUTSIDE RECORDS SUMMARY | 2025-05-22 00:33 | XMS_ITS | Patient Health Record ---
Author Organization [facility] ([address]) Address [address] [place] [address] Care Team Providers Care Historical Manuscripts Curator Name Role Phone Christie High Primary Care Provider Unavailab Madai Devries Unavailable [phone] Carlos Manuel Jeffers Unavailable Unavailable Allergies Allergen (clinical drug ingredient) Drug/Non Drug Allergy documented on EMR Reaction Allergy Type Onset Date Status OMNICEF (uncoded) Hives Allergy Ac tive Reason For Referral No Information Medications Medication SIG (Take, Route, Frequency, Duration) Notes Start Date End Date Status NASAL WASHES N/A DIRECTED INTRANASALLY NEEDED; Duration: 30 *Please review for potential replacement for e-prescription and drug interaction check* Not-Taking ZYRTEC 10 mg 1 tab(s) orally once a day Active BREO ELLIPTA 100 mcg-25 mcg/inh 1 puff(s) inhaled once a day; Duration: 30 day(s) Active ZyrTEC Allergy 10 MG 1 tab(s) orally once a day Active Breo Ellipta 100 MCG-25 MCG/INH 1 PUFF(S) INHALED ONCE A DAY *Please review and pick correct strength-formulat ion from [employer] options. If intended option is not shown, discontinue and re-order from Quick Search* Active Breo Ellipta 100 MCG-25 MCG/INH 1 PUFF(S) INHALED ONCE A DAY; Duration: 30 DAY(S) *Please review and pick correct strength-formulat ion from [employer] options. If intended option is not shown, [...] for e-prescription and drug interaction check* Active BREO ELLIPTA 100 mcg-25 mcg/inh 1 puff(s) inhaled once a day Active Immunizations Vaccine Route Administration Date Status Comme nts NOC Influenza-Fluzone Unknown 05/27/2017 Administered Influenza Unknown 05/10/2014 Administered Influenza Unknown 05/12/2016 Administered NOC Fluzone Quadrivalent IM Intramuscular 06/17/2018 Admin istered Social History Tobacco Use: Social History Observation Description Date Details (start date - stop date) Never Smoker NA - NA Smoking Smart Form: Question Answer Notes Are you a: never smoker Problems Problem Type SNOMED Code ICD Code Onset Dates Problem Status W/U Status Risk Notes Problem Allergic rhinitis caused by pollen (disorder) (82393201) Allergic rhinitis due to pollen (J30.1) Active confirmed Problem Allergic rhinitis caused by animal hair and dander (709327808626127) Allergic rhinitis due to animal (cat) (dog) hair and dander (J30.81) Active confirmed Problem Allergic rhinitis (80325903) Other allergic rhinitis (J30.89) Active confirmed Problem Uncomplicated moderate persistent asthma (812868735) Moderate persistent asthma, uncomplicated (J45.40) Active confirmed Problem Chronic allergic conjunctivitis (51800305) Other chronic allergic conjunctivitis (H10.45) Active confirmed Problem Allergy to penicillin (12976275) Allergy status to penicillin (Z88.0) Active confirmed Problem 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) Active confirmed Plan Of Treatment No Information Insurance Providers Payer Name Payer Address Payer Phone Subscriber Number Group Number Insured Name Patient Relationship to Insured Coverage Start Date Coverage End Date Anamaria JACKSON [address] [place] [address] [id number] Mcnair Child - Insured has Financial Responsibility Medical (General) History Medical History History ICD Code Allergic rhinitis due to pollen J30.1 Allergic rhinitis due to animal (cat) (d og) hair and dander J30.81 Other allergic rhinitis J30.89 Other chronic allergic conjunctivitis H1 0.45 Moderate persistent asthma, uncomplicate d J45.40 Other diseases of vocal cords J38.3 Surgical History Surgery Date(Month/Year) Tonsillectomy/adenoidectomy 04/2003 breast reduction 07/2015 Hospitalization History Reason Date(Month/Year) Asthma 05/2004 Asthma 05/2005 Kidney stones 05/2015
--- OUTSIDE RECORDS SUMMARY | 2025-05-22 00:33 | XMS_ITS | Clinical Summary ---
Author Organization [facility] Address [address] [place] [id number] Care Team Providers Care Die Storage Worker Name Role Phone Edwin Cook MD Primary Care Provider [phone] Social History Tobacco Use Types Packs/Day Years Used Date Smoking Tobacco: Never Assessed Comments Unknown Sex and Gender Information Value Date Recorded Sex Assigned at Not on file Legal Sex Female 8:54 AM CDT Gender Identity Not on file Sexual Orientation Not on file Plan of Treatment Health Maintenance Due Date Last Done Comments Cervical Cancer Screening Pa p Smear (Age 21 to 29) Every 3 Years 1999 Cervical Cancer Screening 1999 Annual Physical 2002 HPV Vaccines (1 - 3-dose series) 2014 Hepatitis C 2017 DTaP, Tdap and Td Vaccines ( 1 - Tdap) 2018 Hepatitis B Vaccines (1 of 3 - 19+ 3-dose series) 2018 COVID-19 Vaccine ( - 2023-2 5 season) 2025 Influenza Adult (#1) 2025 Meningococcal B Vaccine Aged Out No l onger eligible based on patient's age to complete this topic Meningococcal Vaccine Aged Out No gerardo mounika eligible based on patient's age to complete this topic Pneumococcal Vaccine: Pediat rics (0 to 5 Years) and At-Risk Patients (6 to 49 Years) Aged Out No longer eligible b ased on patient's age to complete this topic RSV Immunizations Under 20 Months Aged Out No longer eligible based on patient's age to complete this topic Insurance [facility] Care Teams Die Storage Worker Relationship Specialty Start Date End Date Edwin Cook MD [address] [facility] [address] [place] [address] PCP - General ALLERGY 05/07/18
--- OUTSIDE RECORDS SUMMARY | 2025-05-22 00:33 | XMS_ITS | Clinical Summary ---
Author Organization [facility] Address [address] Dolln: Epic Prelude ADT [place] [address] Care Team Providers Care Crown Ironer Name Role Phone Unavailable Primary Care Provider Unavailabl e Allergies Active Allergy Reactions Criticality Noted Date Comments Penicillins Rash High 01/02/2023 Medications albuterol sulfate HFA 90 mcg/actuation aerosol inhaler INHALE 2 PUFFS BY MOUTH EVERY 4-6 HOURS NEEDED AND PER ASTHMA ACTION PLAN. 6.7 Gram 1 06/22/2023 12:00 PM MULTIPLE SLIDE OPERATOR 11/19/2022 Active OLANZapine (ZyPREXA) 5 mg tablet Take 1 Tablet (5 mg) by mouth daily at bedtime. 30 Tablet 2 08/07/2023 12:21 PM MULTIPLE SLIDE OPERATOR 07/27/2023 Active sertraline (ZOLOFT) 100 mg tablet Take 1.5 Tablets (150 mg) by mouth daily. 45 Tablet 2 08/07/2023 12:21 PM MULTIPLE SLIDE OPERATOR 07/27/2023 Active budesonide-form oteroL (Symbicort) 80-4.5 mcg/actuation HFA Aerosol Inhaler Inhale 2 puffs by mouth twice daily 10.2 Gram 6 08/12/2023 Active Social History Tobacco Use Types Packs/Day Years Used Date Smoking Tobacco: Never Assessed Comments Unknown Sex and Gender Information Value Date Recorded Sex Assigned at Not on file Legal Sex Female 5:37 PM MULTIPLE SLIDE OPERATOR Gender Identity Not on file Sexual Orientation Not on file Plan of Treatment Health Maintenance Due Date Last Done Comments HPV VACCINES (1 - 3-dose series) 2014 DTAP/TDAP/TD VACCINES (1 - Tdap) 2018 HEPATITIS B VACCINES (1 of 3 - 19+ 3-dose series) 03/10 CERVICAL CANCER SCREENING 2020 HPV/Cotest (21-29) 2020 PAP SMEAR 2020 INFLUENZA VACCINE (#1) 2025 Insurance RX [facility] [employer] [employer] (INTERNAL) [facility]
--- OUTSIDE RECORDS SUMMARY | 2025-05-22 00:33 | XMS_ITS | Clinical Summary ---
Author Organization [address] Address [address] [place] [id number] Care Team Providers Care Dimension Specification Inspector Name Role Phone Unknown, Notinfile Primary Care Provider Unavail able Allergies Active Allergy Reactions Criticality Noted Date Comments Cefdinir Medications budesonide-form oteroL (SYMBICORT) 80-4.5 mcg/actuation inhaler Inhale 2 puffs 2 (two) times a day 4 Active sertraline (ZOLOFT) 100 mg tablet Take 1 tablet (100 mg total) by mouth daily 3 Active OLANZapine (ZyPREXA) 5 mg tablet Take 1 tablet (5 mg total) by mouth nightly 3 Active mupirocin (BACTROBAN) 2 % ointmentIndicat ions:Minor Bacterial Skin Infections Apply topically 3 (three) times a day 22 g 4 Active Active Problems Problem Noted Date Diagnosed Date Calculus of kidney 05/18/2015 Large breasts 04/09/2015 Social History Tobacco Use Types Packs/Day Years Used Date Smoking Tobacco: Never Assessed Comments Unknown Sex and Gender Information Value Date Recorded Sex Assigned at Not on file Legal Sex Female 3:07 AM PICTURE ENGRAVER Gender Identity Not on file Sexual Orientation Not on file Obstetrics History Last Filed Vital Signs Vital Sign Reading Time Taken Comments Blood Pressure 119/83 03/06/2024 12:30 PM CDT Pulse 90 03/06/2024 12:30 PM CDT Temperature 36.9 C (98.5 F) 03/06/2024 12:30 PM CDT Respiratory Rate 18 03/06/2024 12:3 0 PM CDT Oxygen Saturation 98% 03/06/2024 12: 30 PM CDT Inhaled Oxygen Concentration - - Weight 91.9 kg (202 lb 11.2 oz) 07/28/2 024 12:30 PM CDT Height 161.5 cm (5' 3.58) 03/06/2024 1 2:30 PM CDT Body Mass Index 35.25 03/06/2024 12:30 PM CDT Plan of Treatment Health Maintenance Due Date Last Done Comments Cervical Cancer Screening 1999 Depression Screening 1999 Hepatitis C Screening 1999 Regular Well Visit/Exam 18-64 2017 Pneumococcal vaccine <65 (1 of 2 - PCV) 2018 DTaP/Tdap/Td Vaccine (7 - Td or Tdap) 05/20/2020 05/20/2010, 03/25/2004, 06/30/2000, Additional history exists Covid-19 Vaccine (2024-2 6 season) 2025 07/06/2023, 09/21/2021, 10/15/2020 Influenza Vaccine (#1) 2025 , 06/02/2022, 05/18/2020, Additional history exists Hepatitis B Screening Completed 06/30/2000 , 1999, 1999 Varicella Vaccines Completed 02/22/2014, 04/01/2000 HPV Vaccines Completed 08/01/2014, 02/22/2014 Insurance [facility]PP[facility] Address: [facility] [address] [place] [address] Care Teams Dimension Specification Inspector Relationship Specialty Start Date End Date Unknown, Notinfile PCP - General 03/06/24
--- NOTE | 2025-05-22 07:25 | WPDHPUPDATE1 ---
History and Physical Update Update Date/Time: 05/22/25 07:25 History and Physical has been reviewed, including an updated exam of the patient. There are NO changes in the patient's condition. Risks, benefits, and alternatives have been discussed and questions answered. Patient agrees to proceed with procedure.
--- NOTE | 2025-05-22 07:26 | PM.HPGS ---
History of Present Illness History of Present Illness Consent: Risks, benefits, and alternatives have been discussed and questions answered. Patient agrees to proceed with procedure. Chief complaint: Desires Serilization Narrative: Jeaneth Mcnair is a 25 year old female who has made the decision to proceed with bilateral salpingectomy for sterilization. The patient states she never plans to have children and is okay with proceeding to adoption should she change her mind. She is aware this is permanent and irreversible sterilizing procedure. She was aware of all other control options. The risk of regret was discussed in detail with the patient and she voices understanding and wishes to proceed with surgery. Risks of surgery including ectopic should the tubal fail, infection, bleeding, and injury to organs are reviewed. Patient voices understanding wishes to proceed. Review of Systems Review of Systems: not repeated day of surgery; patient states no changes in status PMFSH Past Medical History Medical History (Updated 05/22/25 @ 07:29 by Lakeisha Davis MD) Autism Asthma Depression with anxiety Surgical History Surgical History (Updated 05/22/25 @ 07:28 by Lakeisha Davis MD) History of tonsillectomy History of bilateral breast reduction surgery Social History Social History Smoking status: Never smoker Alcohol intake: current Alcohol use details: 2/month Substance use: current Substance use type: marijuana Other substance usage details: gummies 1x/month Living arrangements: with family Spiritual care concerns: No Meds Home Medications and Allergies Home Medications ?Medication ?Instructions ?Recorded ?Confirmed ?Type sertraline 50 mg tablet 50 mg PO DAILY 06/13/22 05/17/25 History aripiprazole 5 mg tablet 5 mg PO DAILY 05/17/25 05/17/25 History budesonide-formoterol HFA 80 2 inh inhalation BID asthma 05/17/25 05/17/25 History mcg-4.5 mcg/actuation aerosol inhaler (Symbicort) escitalopram oxalate 10 mg tablet 10 mg PO DAILY 05/17/25 05/17/25 History hydroxyzine HCl 25 mg tablet 25 mg PO BID PRN anxiety 05/17/25 05/17/25 History Allergies Allergy/AdvReac Type Severity Reaction Status Date / Time cefdinir Allergy Intermediate RASH, HIVES Verified 05/17/25 13:05 Exam Const: General: healthy appearing and alert Orientation/consciousness: patient oriented x3 Resp: Effort & Inspection: normal respiratory effort Auscultation: clear to auscultation bilaterally Cardio: Rate: regular rate Rhythm: regular rhythm GI: GI Palp: Yes Soft to palpation, No Tenderness to palpation present (GI) and No Palpable mass present : External Female Exam: normal external appearance Speculum Exam - Vagina: normal appearance of the vagina and normal vaginal discharge Speculum Exam - Cervix: normal appearance of the cervix Bimanual exam- vagina & uterus: uterine size normal and consistency normal Bimanual Exam- Adnexa, other: normal adnexae and No adnexal tenderness Neuro: General: patient oriented x3 Assessment and Plan Assessment and plan (1) Encounter for sterilization: Code(s): Z30.2 - Encounter for sterilization Status: Acute Assessment and Plan: Plan to proceed with laparoscopic bilateral salpingectomy
--- NOTE | 2025-05-22 08:15 | WPDANESEPPF ---
Anes - Initial Pre Proc Eval Procedure: Operation Date: 05/22/25 09:45 Proposed Procedures p Laparoscopic Bilateral Salpingectomy - Lakeisha Davis MD Date/Time: 05/22/25 08:15 Surgeon: Lakeisha Davis MD Pre Op Diagnosis: Desires Serilization Patient Data Age: 25 Gender: F Height: 1.6 m Weight: 90.9 kg Allergies Allergy/AdvReac Type Severity Reaction Status Date / Time cefdinir Allergy Intermediate RASH, HIVES Verified 05/17/25 13:05 Home Medications ?Medication ?Instructions ?Recorded ?Confirmed ?Type sertraline 50 mg tablet 50 mg PO DAILY 06/13/22 05/17/25 History aripiprazole 5 mg tablet 5 mg PO DAILY 05/17/25 05/17/25 History budesonide-formoterol HFA 80 2 inh inhalation BID asthma 05/17/25 05/17/25 History mcg-4.5 mcg/actuation aerosol inhaler (Symbicort) escitalopram oxalate 10 mg tablet 10 mg PO DAILY 05/17/25 05/17/25 History hydroxyzine HCl 25 mg tablet 25 mg PO BID PRN anxiety 05/17/25 05/17/25 History Results Review: All pre-operative results and documents have been reviewed as part of the pre-operative evaluation. [facility] Past Medical History Medical History Autism Asthma Depression with anxiety Surgical History Surgical History History of tonsillectomy History of bilateral breast reduction surgery Social History Social History Smoking status: Never smoker Alcohol intake: current Alcohol use details: 2/month Substance use: current Substance use type: marijuana Other substance usage details: gummies 1x/month Living arrangements: with family Spiritual care concerns: No Anes - Eval Final PreProcedure Day of Procedure 05/22/25 08:15 Patient weight: obese ASA classification: III Results Review: All pre-operative results and documents have been reviewed as part of the pre-operative evaluation. Informed Consent: The patient's anesthetic plan and its attendant risks and benefits were discussed with the patient/family/POA. Questions were solicited and answers provided to the satisfaction of the patient/family/POA.
[2025-05-22] MEDS: KETOROLAC 15 MG/ML VIAL (*BKC) IV PUSH (08:45)
[2025-05-22] MEDS: ACETAMINOPHEN 500 MG TABLET 1000 MG PO (08:45)
[2025-05-22] MEDS: LACTATED RINGERS 1,000 ML 30 ML IV CONT ×2 (08:45→10:40)
--- NOTE | 2025-05-22 09:11 | P.PNAN_ITS ---
Anes - Initial Pre Proc Eval Procedure: Operation Date: 05/22/25 09:45 Proposed Procedures p Laparoscopic Bilateral Salpingectomy - Lakeisha Davis MD Date/Time: 05/22/25 09:11 Surgeon: Lakeisha Davis MD Pre Op Diagnosis: Desires Serilization Patient Data Age: 25 Gender: F Height: 1.6 m Weight: 90.9 kg Allergies Allergy/AdvReac Type Severity Reaction Status Date / Time cefdinir Allergy Intermediate RASH, HIVES Verified 05/17/25 13:05 Home Medications ?Medication ?Instructions ?Recorded ?Confirmed ?Type sertraline 50 mg tablet 50 mg PO DAILY 06/13/2204/03 History aripiprazole 5 mg tablet 5 mg PO DAILY 05/17/2505/17 History budesonide-formoterol HFA 80 2 inh inhalation BID asth ma 05/17/25 05/17/25 History mcg-4.5 mcg/actuation aerosol inhaler (Symbicort) escitalopram oxalate 10 mg tablet 10 mg PO DAILY 05/1705/17/25 History hydroxyzine HCl 25 mg tablet 25 mg PO BID PRN anxiety 05/17/25 05/17/25 History Patient hx anesthesia problems: none Family hx anesthesia problems: none Results Review: All pre-operative results and documents have been reviewed as part of the pre- operative evaluation. [facility] Past Medical History Medical History Autism Asthma Depression with anxiety Surgical History Surgical History History of tonsillectomy History of bilateral breast reduction surgery Social History Social History Smoking status: Never smoker Alcohol intake: current Alcohol use details: 2/month Substance use: current Substance use type: marijuana Other substance usage details: gummies 1x/month Living arrangements: with family Spiritual care concerns: No Anes - Eval Final PreProcedure Day of Procedure 05/22/25 09:11 Patient weight: obese Heart: regular rate and rhythm Lungs: clear to auscultation Airway: Mallampati scale class II Neurological: alert and oriented Last oral intake: >/= 8 hours ASA classification: III Emergent: no Anesthetic plan: proceed Anesthesia type and monitoring: general ETT and standard monitoring Results Review: All pre-operative results and documents have been reviewed as part of the pre- operative evaluation. Informed Consent: The patient's anesthetic plan and its attendant risks and benefits were discussed with the patient/family/POA. Questions were solicited and answers provided to the satisfaction of the patient/family/POA.
[2025-05-22] MEDS: SCOPOLAMINE 1 MG PATCH 1 PATCH TRANSDERM (09:28)
[2025-05-22 09:29] LABS: BEDSIDEPREGUCG Negative (Negative)
--- NOTE | 2025-05-22 10:21 | S_PTH ---
PATIENT: Jeaneth Mcnair LOC: [facility] U#:[id number] AGE/SX: 25/F ROOM: RE05/22/[address]: Lakeisha Davis MD : 2000 BED: DIS: 05/22/2025 SPEC #: [id number] RECD: 05/22/25 11:34 STATUS: RATNA REQ #: [id number] KEVIN: 05/22/25 10:[address]: Lakeisha Davis DEPT: [facility] Surgical RECD BY: Paige Almeida ENTERED: 05/22/25 11:35 SP TYPE: Surgical OTHR DR: Christie High, PA-C Tissues: A - Fallopian Tube Bilateral Procedures: Gross and Microscopic Level 2 Hematoxylin and Eosin Stain
--- NOTE | 2025-05-22 10:31 | P.OP_ITS ---
Procedure Note - Detailed Date of Procedure 05/22/25 Pre-op Diagnosis Desires Serilization Post-op Diagnosis Same Procedure Performed Laparoscopic bilateral salpingectomy Surgeon Lakeisha Davis MD Anesthesia General Findings Normal-appearing tubes, ovaries, and uterus. Description of Procedure The patient was taken to the operating room and placed under anesthesia in the dorsal lithotomy position. She was prepped and draped in usual sterile fashion. Bladder was drained with red rubber catheter. Zeeland speculum was placed in the vagina and the cervix grasped on the anterior lip with a tenaculum. The acorn manipulator was placed and the speculum removed. The attention was then turned to the abdomen where a 1cm vertical skin incision was made with a scalpel at the base of the umbilicus. The abdomen was tented with towel clamps and the Veress needle was placed. Water drop test is normal. Opening patient pressure was 8mmHg. Pneumoperitoneum was obtained with CO2 to a patient pressure of 15mmHg. The Veress needle was then removed and the 5mm Optiview trocar was placed. Intra-abdominal placement was confirmed with the laparoscope. The patient is placed in Trendelenburg. The 2 lower ports are placed to the left and right of midline 2cm above the symphysis pubis under direct visualization. The blunt probe was used to bring the tubes into the visual field. The right tube was grasped at its fimbriated end and using the LigaSure the mesosalpinx is cauterized and cut. Once the cornu was reached the tube was crossclamped, cauterized, and cut. The identical procedures performed on the left side. Good hemostasis was noted at all sites. The trocars are removed. Pneumoperitoneum is reduced. Skin incisions were closed using 4-0 nylon in an interrupted fashion. The vaginal instruments are removed. Sponge, needle, and instrument counts are correct per the OR staff. The patient was awakened from anesthesia and taken to recovery in stable condition. Estimated Blood Loss 25 Drains No Packing No Pathology Yes (Bilateral fallopian tubes) Complications No immediate complications Condition Stable Disposition PACU
[2025-05-22] MEDS: fentaNYL CITRATE INJ (*CRX) 100 MCG/2 ML VIAL 25 MCG IV PUSH (10:52)
== END 2025-05-22 12:45 | disposition home or self-care (01) ==
PROVIDERS: Anesthesiology; PCP Physician Assistant; Visit Provider Obstetrics & Gynecology Gynecology
PROC: (CPT 49320; principal; 2025-05-22 09:45)
DX: Z30.2 Encounter for sterilization (principal); N83.8 Other noninflammatory disorders of ovary, fallopian tube and broad ligament; G89.18 Other acute postprocedural pain; J45.909 Unspecified asthma, uncomplicated; F41.8 Other specified anxiety disorders; F84.0 Autistic disorder; F12.90 Cannabis use, unspecified, uncomplicated; E66.9 Obesity, unspecified; Z68.36 Body mass index [BMI] 36.0-36.9, adult; Z79.51 Long term (current) use of inhaled steroids; Z98.890 Other specified postprocedural states
CPT/HCPCS: 58661; 88302; A9270; J1100; J1885; J2003; J2250; J2405; J2704; J3010; J7120